=== PATIENT | female | born 1980 | race Caucasian/White ===

== ENCOUNTER 2018-01-30 10:20 | Outpatient (CLI) | END 2018-01-30 12:25 | disposition home or self-care (01) ==

== ENCOUNTER 2018-02-06 21:12 | Outpatient (CLI) | END 2018-02-06 23:00 | disposition home or self-care (01) ==

== ENCOUNTER 2018-03-09 20:09 | Outpatient (CLI) | END 2018-03-09 22:42 | disposition home or self-care (01) ==

== ENCOUNTER 2018-03-13 15:23 | Inpatient (IN) | payer OTHER ==
[~2018-03-13] VITALS: Ht 157.5 cm; Wt 69.0 kg
[~2018-03-13 15:23] MED LIST: CALC600T24 PO; FER325 PO; PREN-39
[2018-03-13 15:31] VITALS: BP 102/67; PULSE 86; RESP 20; Ht 157.5 cm; Wt 69.0 kg
[2018-03-13] MEDS ORDERED: BUTORPHANOL 1 MG INJ IV PRN (18:00)
[2018-03-13] MEDS ORDERED: IBUPROFEN 600 MG TAB PO PRN (18:00)
[2018-03-13] MEDS ORDERED: OXYTOCIN 30 UNITS/LR 500 ML IV SCH ×3 (18:00)
[2018-03-13] MEDS ORDERED: LIDOCAINE 1% (MPF) 30 ML INJ INJ PRN (18:00)
[2018-03-13] MEDS ORDERED: CARBOPROST 250 MCG INJ IM PRN (18:00)
[2018-03-13] MEDS ORDERED: METHYLERGONOVINE 0.2 MG INJ IM PRN (18:00)
[2018-03-13] MEDS ORDERED: MISOPROSTOL 200 MCG TAB PR PRN (18:00)
[2018-03-13] MEDS ORDERED: OXYTOCIN 30 UNITS/LR 500 ML IV PRN (18:00)
[2018-03-13] MEDS ORDERED: BUTORPHANOL 2 MG INJ IV PRN (18:00)
[2018-03-13] MEDS: LACTATED RINGER'S 1,000 ML IV SCH (20:11)
[2018-03-13] MEDS ORDERED: FENTAnyl 2MCG/ML-ROPIV 0.2% 100 ML ONE (20:15)
--- NOTE | 2018-03-13 20:25 | PREAC ---
Date/Time of Note Date/Time of Note DATE: 03/13/18 TIME: 20:24 Anesthesia Eval and Record Evaluation Time Pre-Procedure Interview DATE: 03/13/18 TIME: 20:24 Age 38 Sex female NPO: 8 hrs Preoperative diagnosis Labor pain Planned procedure Labor Epidural Past Medical History Past Medical History: Includes : : (3), Para: (2), Gestational age: (39) Surgery & Anesthesia Issues No known issue Meds Anticoagulation: No Beta Emily within 24 hr: No Reason Beta Emily not given: Pt. not on B-Emily Reported Medications Calcium Carbonate* (Calcium Carbonate*) 600 MG Ca Tab, 600 MG PO DAILY, TAB 01/30/18 Ferrous Sulfate* (Ferrous Sulfate*) 325 Mg Tabec, 325 MG PO DAILY, TAB 01/30/18 Vits W-Ca,Fe,Fa(<1MG) ( Vitamins) 1 Tab Tablet 08/19/10 Current Medications Lactated Ringer's 1,000 ml @ 125 mls/hr Q8H IV Last administered on 03/13/18at 20:11; Admin Dose 125 MLS/HR; Start 03/13/18 at 17:36 Butorphanol Tartrate (Stadol) 1 mg Q2H PRN IV PAIN; Start 03/13/18 at 18:00 Butorphanol Tartrate (Stadol) 2 mg Q2H PRN IV PAIN; Start 03/13/18 at 18:00 Lidocaine (Xylocaine 1% (Mpf)) 30 ml ONCE PRN INJ EPISIOTOMY; Start 03/13/18 at 18:00 Oxytocin/Lactated Ringer's 500 ml @ 500 mls/hr ONCE POST IV ; Start 03/13/18 at 18:00 Oxytocin/Lactated Ringer's 500 ml @ 125 mls/hr POST IV ; Start 03/13/18 at 18:00 Ibuprofen (Motrin) 600 mg ONCE PRN PO PAIN LEVEL 1-5; Start 03/13/18 at 18:00 Oxytocin/Lactated Ringer's 500 ml @ 0 mls/hr ONCE PRN IV VAGINAL BLEEDING; Start 03/13/18 at 18:00 Methylergonovine Maleate (Methergine) 0.2 mg ONCE PRN IM VAGINAL BLEEDING; Start 03/13/18 at 18:00 Carboprost Tromethamine (Hemabate) 250 mcg ONCE PRN IM VAGINAL BLEEDING; Start 03/13/18 at 18:00 Misoprostol (Cytotec) 1,000 mcg ONCE PRN RI VAGINAL BLEEDING; Start 03/13/18 at 18:00 Oxytocin/Lactated Ringer's 500 ml @ 0 mls/hr FOR AUGMENTATION IV ; Start 03/13/18 at 18:00 Meds reviewed: Yes Allergies Coded Allergies: No Known Drug Allergies (Verified Allergy, Mild, 03/09/18) Allergies Reviewed: Yes Labs/Studies Labs Reviewed: Reviewed by anesthesiologist Result Diagram: 03/13/18 1829 Laboratory Tests 03/13/18 18:29 Blood Bank Test 03/13/18 19:32 Blood Type A POSITIVE Rh Immune Globulin Candidate NO test: Positive Studies: ECG (n/a), CXR (n/a) Pre-procedure Exam Last vitals Vital Signs Date Temp Pulse Resp B/P (MAP) Pulse Ox O2 O2 Flow FiO2 Time Delivery Rate 03/13/18 97.7 86 20 102/67 Room Air 15:31 (79) Airway: Adequate mouth opening, Adequate thyromental dist Mallampati: Mallampati II Teeth: Normal Lung: Normal Heart: Normal ASA Physical Status ASA physical status: 2 Emergency: None Planned Anesthetic Neuraxial: Epidural Planned Pain Management Epidural Pre-operative Attestations Prior to commencing anesthesia and surgery, the patient was re-evaluated, there was verification of: *The patient's identity *The results of appropriate recent lab work and preoperative vital signs *The above evaluation not changing prior to induction *Anesthetic plan, risk benefits, alternative and complications discussed with patient/family; questions answered; patient/family understands, accepts and wishes to proceed. CLEMENT DE OLIVEIRA MD Mar 13, 2018 20:25
--- NOTE | 2018-03-13 20:27 | PAC ---
Date/Time of Note Date/Time of Note DATE: 03/13/18 TIME: 20:27 Post-Anesthesia Notes Post-Anesthesia Note Last documented vital signs Vital Signs Date Temp Pulse Resp B/P (MAP) Pulse Ox O2 O2 Flow FiO2 Time Delivery Rate 03/13/18 97.7 86 20 102/67 100 Room Air 20:31 (79) Activity: WNL Respiratory function: WNL Cardiovascular function: WNL Mental status: Baseline Pain reasonably controlled: Yes Hydration appropriate: Yes Nausea/Vomiting absent: Yes CLEMENT DE OLIVEIRA MD Mar 13, 2018 20:27
[2018-03-13] MEDS ORDERED: FENTAnyl 2MCG/ML-ROPIV 0.2% 100 ML BAG EPI SCH (20:30)
[2018-03-13] MEDS ORDERED: NALOXONE (0.4 MG/ML) INJ IV PRN (20:30)
[2018-03-13] MEDS ORDERED: MINERAL OIL LIGHT 10 ML VIAL TOP ONE (21:30)
--- NOTE | 2018-03-14 02:53 | HP ---
Date/Time of Note Date/Time of Note DATE: 03/14/18 TIME: 02:19 OB - History Hx of Present Free Text/Dictation 37y.o here at 40w5d for antepartum test without uc's CAT I tracing unevenful care, GBS neg due to postdate ,IOL was recommended. Patient agree to stay for IOL VE closed/long /-3 pitocin will be used for IOL Chief Complaint: IOL Estimated Due Date: Mar 08, 2018 : 3 Para: 2 Spontaneous : 0 Therapeutic : 0 Care: Good Care Ultrasounds: Normal mid trimester US Obstetrical Complications: None Medical Complications: None Past Family/Social History * Past Medical, Surgical, Family and Obstetric Histories reviewed from chart. Blood Type: A+ Rubella: immune RPR/VDRL: Negative GBS Status: Negative HBsAG: Negative OB Admission Exam Vital Signs Vital Signs Vital Signs Date Temp Pulse Resp B/P (MAP) Pulse Ox O2 O2 Flow FiO2 Time Delivery Rate 03/13/18 97.7 86 20 102/67 Room Air 15:31 (79) Physical Exam HEENT: WNL Heart: Rhythm Normal Lungs: Clear, Equal Abdomen: WNL Extremities: Normal Reflexes: Normal Cervical Dilatation: Fingertip Effacement: 0% Station: -3 Membranes: Intact Amniotic Fluid: Unevaluable Heart Rate: 140's Accelerations: Accelerations Present Decelerations: No Decelerations Varibility: Moderate Contractions on Admission: None Last 72 hours Lab Results CBC & BMP 03/13/18 18:29 OB Assessment/Plan Other Assessment: A IUP 40w5d P IOL with pitocin Plan: Induction Induction Method: per Pitocin Protocol ROCAEL DYSON MD Mar 14, 2018 02:53
[2018-03-14] MEDS: LACTATED RINGER'S 1,000 ML IV SCH ×3 (04:06→09:30)
--- NOTE | 2018-03-14 14:39 | LDN ---
Date/Time of Note Date/Time of Note DATE: 03/14/18 TIME: 14:34 Delivery Summary normal vaginal delivery of normal male infant Weeks of Gestation 40w6d Placenta Delivered: Spontaneously Meconium: none Episiotomy: No Perineal laceration: 1 Laceration repair: 000ch gut Anesthesia type: Epidural Estimated blood loss: 50 Sponge & Needle done & correct: Yes All needle counts correct: Yes Any foreign bodies felt in the: No Delivery Information Sex Infant Sex: male Apgars 1 Minute: 9 5 Minute: 9 Suctioning Nose & mouth suctioned at billy: Yes Delee suction performed: No Umbilical Cord Umbilical cord with: 3 Vessels Cord presentations: no nuchal cord Cord Blood was obtained: Yes Mother & Baby Disposition Disposition Mom & Baby to Maternity; Good: Yes Mom transferred to: Other () Baby to NICU: No (ostpartum) ROCAEL DYSON MD Mar 14, 2018 14:39
[2018-03-14 16:00] VITALS: BP 94/58; PULSE 57; RESP 18
--- NOTE | 2018-03-14 16:00 | NUR ---
Admitted to room 306, orientated to room and floor policies. Reviewed baby safety. advised to call when needs to void
[2018-03-14] MEDS ORDERED: OXYTOCIN 30 UNITS/LR 500 ML IV PRN (16:30)
[2018-03-14] MEDS ORDERED: METHYLERGONOVINE 0.2 MG INJ IM PRN (16:30)
[2018-03-14] MEDS ORDERED: BENZOCAINE 20% 56 ML SPRAY TOP PRN (16:30)
[2018-03-14] MEDS ORDERED: WITCH HAZEL/GLYCERIN PAD PR PRN (16:30)
[2018-03-14] MEDS ORDERED: CARBOPROST 250 MCG INJ IM PRN (16:30)
[2018-03-14] MEDS ORDERED: LANOLIN HPA 1 PKT TOP PRN (16:30)
[2018-03-14] MEDS ORDERED: MISOPROSTOL 200 MCG TAB PR PRN (16:30)
[2018-03-14] MEDS ORDERED: OXYCODONE/ASPIRIN (4.88/325) TAB PO PRN ×2 (16:30)
[2018-03-14] MEDS ORDERED: ZOLPIDEM 5 MG TAB PO PRN (16:30)
--- NOTE | 2018-03-14 17:00 | NUR ---
Up to void, large amount missed martinez. Fundus now at the midline, firm, no excessive bleeding
[2018-03-14] MEDS: IBUPROFEN 600 MG TAB PO SCH ×2 (17:52→20:35)
[2018-03-14] MEDS ORDERED: LACTATED RINGER'S 500 ML IV SCH (19:00)
--- NOTE | 2018-03-14 19:00 | NUR ---
EOSS: S/P vaginal delivery. Voided x 1. Remains on LR at 125ml/hr. Fundus firm at umbilicus. Patient resting comfortably. Denied ibuprofen at this time. Family at bedside.
[2018-03-14] MEDS ORDERED: LACTATED RINGER'S 1,000 ML IV SCH (19:09)
[2018-03-14 20:15] VITALS: BP 112/62; PULSE 64; RESP 16
[2018-03-14] MEDS: SENNA/DOCUSATE NA (8.6MG/50MG) TAB PO SCH (21:22)
[2018-03-15] VITALS: BP 98/55; PULSE 65; RESP 16
[2018-03-15 04:00] VITALS: BP 107/57; PULSE 67; RESP 18
[2018-03-15] MEDS: IBUPROFEN 600 MG TAB PO SCH ×3 (04:27→18:08)
--- NOTE | 2018-03-15 06:01 | NUR ---
EOSS: Vital signs stable. No acute distress. Ambulating well. Fundus firm. Scant [place]. and bonding well with baby.
[2018-03-15 07:40] VITALS: BP 117/59; PULSE 59; RESP 16
[2018-03-15] MEDS: SENNA/DOCUSATE NA (8.6MG/50MG) TAB PO SCH (09:19)
[2018-03-15 15:16] VITALS: BP 110/73; PULSE 82; RESP 20
--- NOTE | 2018-03-15 15:23 | NUR ---
REPORT GIVEN TO ANGELIQUE DE LA GARZA
--- NOTE | 2018-03-15 16:22 | PN ---
Date/Time of Note Date/Time of Note DATE: 03/15/18 TIME: 16:20 OB Subjective Subjective Subjective March 15, 2018 Patient ambulating. Vaginal bleeding in the amount of menses. Breast-feeding. Denies any complaints. Reports only some scant soreness in the repair area. Desires to go home today. OB Objective Objective Objective General appearance: Alert and oriented x4 does not appear to be in any acute distress Abdomen: Soft, fundus firm and palpable below the umbilicus and consistent with uterus Extremities: No calf tenderness, no click no edema Breast: No evidence of engorgement of mastitis small fissure in the left nipple noted., VS - Last 72 Hours, by Label Date Temp Pulse Resp B/P (MAP) Pulse Ox O2 O2 Flow FiO2 Time Delivery Rate 03/15/18 97.8 82 20 110/73 Room Air 15:16 (85) 03/15/18 98.4 59 16 117/59 Room Air 07:40 (78) 03/15/18 97.8 67 18 107/57 Room Air 04:00 (74) 03/15/18 97.7 65 16 98/55 (69) Room Air 00:00 03/14/18 98.2 64 16 112/62 Room Air 20:15 (79) 03/14/18 98.8 57 18 94/58 (70) Room Air 16:00 03/13/18 97.7 86 20 102/67 Room Air 15:31 (79) Laboratory Tests Test 03/15/18 06:25 03/15/18 07:11 Lab Scanned Report REFERENCE LAB White Blood Count 9.9 Red Blood Count 3.51 L Hemoglobin 11.3 L Hematocrit 32.3 L Mean Corpuscular Volume 92.0 Mean Corpuscular Hemoglobin 32.2 Mean Corpuscular Hemoglobin Concent 35.0 Red Cell Distribution Width 12.4 Platelet Count 163 Mean Platelet Volume 10.0 Immature Granulocytes % 0.400 Neutrophils % 63.1 Lymphocytes % 26.3 Monocytes % 8.4 Eosinophils % 1.6 Basophils % 0.2 Nucleated Red Blood Cells % 0.0 Immature Granulocytes # 0.040 H Neutrophils # 6.2 Lymphocytes # 2.6 Monocytes # 0.8 Eosinophils # 0.2 Basophils # 0.0 Nucleated Red Blood Cells # 0.0 OB Assessment/Plan Other Assessment: status post Status post induction at 40 weeks and 6 days for postdates Doing well Desires to go home today Vitals are stable and patient is stable to be discharged home. Baby has been discharged. Small fissure in the left breast. Care of the left breast discussed with the patient DC home follow up at 6 weeks post with her OB office MICHELLE COTE MD Mar 15, 2018 16:22
--- NOTE | 2018-03-15 16:25 | DS ---
Date/Time of Note Date/Time of Note DATE: 03/15/18 TIME: 16:23 Obstetrical Discharge Record Final Diagnosis Final Diagnosis: Term delivered Other Final Diagnosis s/p induction for post date Vaginal Delivery Other Delivery information 37y.o here at 40w5d for antepartum test without uc's CAT I tracing unevenful care, GBS neg due to postdate ,IOL was recommended. Patient agree to stay for IOL Patient underwent induction of labor with Cytotec and then Pitocin. Antepartum and course was not complicated. On day #1 patient after 24 hours postdelivery desire to go home. Baby was discharged home. Hospital course was uncomplicated. She was afebrile. Her vitals were stable. Advised the patient to have a follow-up in 6 weeks with her primary OB office or sooner as needed with the instruction post vaginal delivery care Complications Rupture of Membranes: No MICHELLE COTE MD Mar 15, 2018 16:25
--- NOTE | 2018-03-15 16:26 | PD.PPDC ---
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
--- NOTE | 2018-03-15 18:42 | NUR ---
D/C INSTRUCTIONS GIVEN. VERBALIZED UNDERSTANDING.
[2018-03-16] MEDS ORDERED: DIPHTH/TET/ACEL PERTUSS (ADULT) 0.5 ML VIAL IM* ONE (09:00)
== END 2018-03-15 19:30 | disposition home or self-care (01) | DRG 807 ==
LOC: OBT 15:23 → L-D 15:23 → OBT 17:20 → L-D 17:20 → PP1 03-14 15:58
PROVIDERS: ADMIT Obstetrics & Gynecology; ATTEND Obstetrics & Gynecology
PROC: 10E0XZZ Delivery of Products of Conception, External Approach (ICD-10-PCS; principal; 2018-03-14)
PROC: 0HQ9XZZ Repair Perineum Skin, External Approach (ICD-10-PCS; 2018-03-14)
DX: O48.0 Post-term pregnancy (principal); Z37.0 Single live birth; Z3A.40 40 weeks gestation of pregnancy; O70.0 First degree perineal laceration during delivery
CPT/HCPCS: 62319; 76815; 76818; 85025; 85610; 85730; 86592; 86850; 86900; 86901; 87340; 99464; G0463; J2590; J3010; J7120